=== PATIENT | male | born 1955 | race Caucasian/White ===

== ENCOUNTER 2018-06-29 08:54 | Inpatient (IN) | payer BC, OTHER ==
[2018-06-29 09:12] LABS: #Basophils 0.1 thou/uL (0.0-0.2); #Eosinphils 0.5 thou/uL (0.0-0.7); #Lymphocytes 2.1 thou/uL (1.20-3.40); #Monocytes 0.7 thou/uL (0.11-0.59); #Neutrophils 5.7 thou/uL (1.40-6.50); %Basophils 0.8 % (0.0-1.0); %Eosinophils 5.4 % (0.0-10.0); %Lymphocytes 22.7 % (21.0-51.0); %Monocytes 8.2 % (0.0-10.0); %Neutrophils 62.9 % (42.0-75.0); Mean Corpuscular HGB CONC 32.8 g/dL (32.0-36.0); Mean Corpuscular Volume 94.6 fL (78.0-98.0); Mean Platelet Volume 8.1 fL (7.4-10.4); Platelet Count 163 thou/uL (130-400); RBC Distribution Width 11.9 % (11.5-14.5); Red Blood Cell (RBC) Count 5.46 mill/uL (4.70-6.10)
[2018-06-29 09:32] LABS: ALT (SGPT) 45 U/L (8-55); AST (SGOT) 44 U/L (5-34); Albumin 4.1 g/dL (3.4-4.8); Alkaline Phosphatase 89 U/L (40-150); Anion Gap 15 mmol/L (10-20); BUN (Urea Nitrogen) 13 mg/dL (8.4-25.7); Bilirubin, Total 0.9 mg/dL (0.2-1.2); CK (CPK) 78 U/L (30-200); Calc. Creatinine Clearance 0 mL/min (70-130); Calcium 9.4 mg/dL (7.8-10.44); Carbon Dioxide 20 mmol/L (23-31); Chloride 107 mmol/L (98-107); Estimated GFR-MDRD 70; Globulin 3.6 g/dL (2.4-3.5); Glucose 165 mg/dL (80-115); Potassium 3.8 mmol/L (3.5-5.1); Protein, Total 7.7 g/dL (5.8-8.1); Sodium 138 mmol/L (136-145)
[2018-06-29 09:54] LABS: CKMB 1.7 ng/mL (0-6.6)
[2018-06-29] MEDS ORDERED: ISOVUE-370 76%-LOCM 1 ML ONE (09:54)
--- NOTE | 2018-06-29 10:13 | RAD ---
PORTABLE AP CHEST: Date: 06/29/18 HISTORY: Shortness of breath and weakness. FINDINGS: Cardiac silhouette and pulmonary vasculature are within normal limits. Lungs are clear. Osseous struc tures are intact. Vascular calcifications seen in thoracic aorta. IMPRESSION: No acute cardiopulmonary process. POS: H
--- NOTE | 2018-06-29 11:21 | CT ---
CTA CHEST AND ABDOMEN AND PELVIS WITH CONTRAST WITH 3D VOLUME RENDERING CT AORTOGRAM WITH 3D VOLUME RENDERING WITH CONTRAST: Date: 06/29/18 CLINICAL HISTORY: Pain, shortness of breath. History of ST elevation abnormality on EKG. FINDINGS: There is a large central filling defect occupying the right and left main pulmonary emboli extending into multiple segmental and subsegmental pulmonary arterial branches bilaterally consistent with a la rge, acute pulmonary embolus. There is no aortic dissection. Small hepatic hypodensity is seen within the right lobe, too small to further characterize. Low attenuation hepatic parenchyma could relate t o phase of enhancement versus hepatic steatosis. Correlate with liver function enzymes. There is a la rge exophytic cyst emanating from the posterior aspect of the right kidney. Small volume of partially imaged mesenteric fluid is seen at the low abdomen. Non-inflamed fat-containing umbilical hernia is present. IMPRESSION: 1. Large, acute saddle pulmonary embolus. 2. No acute aortic dissection. Telephone call findings to ER physician, Dr. Anderson, at 1100 hours on 06/29/18. CODE CR. POS: LV
[2018-06-29 11:28] LABS: INR-International Normal Ratio 1.1; Prothrombin Time 14.3 SEC (12.0-14.7)
[2018-06-29 11:29] LABS: PTT 27.5 SEC (22.9-36.1)
[2018-06-29] MEDS ORDERED: Enoxaparin Sodium 100 MG/ML SYRINGE ONE (11:40)
[2018-06-29] MEDS ORDERED: Enoxaparin Sodium 30 MG/0.3 ML SYRINGE ONE (11:40)
[2018-06-29] MEDS ORDERED: Calcium Carbonate 500 MG ChewTAB PO PRN (13:11)
[2018-06-29] MEDS ORDERED: Zolpidem Tartrate 5 MG TAB PO PRN (13:11)
[2018-06-29] MEDS ORDERED: Acetaminophen 325 MG TAB PO PRN (13:11)
[2018-06-29] MEDS ORDERED: hydrALAZINE 20 MG/ML VIAL SLOW IVP PRN (13:11)
[2018-06-29] MEDS ORDERED: HYDROcodone/Acetaminophen 5/325 mg Tablet PO PRN (13:11)
[2018-06-29] MEDS ORDERED: Loratadine 10 MG TAB PO PRN (13:11)
[2018-06-29] MEDS ORDERED: Bisacodyl 5 MG TAB PO PRN (13:11)
[2018-06-29] MEDS ORDERED: Diabetic Tussin 200 MG/10 ML UDCUP PO PRN (13:11)
[2018-06-29] MEDS ORDERED: Senokot S 8.6-50 MG TAB PO PRN (13:11)
[2018-06-29] MEDS ORDERED: Ondansetron ODT 4 MG TAB PO PRN (13:11)
[2018-06-29] MEDS ORDERED: Ondansetron PF 4 MG/2 ML Vial IVP PRN (13:11)
[2018-06-29] MEDS ORDERED: Eucerin (Mineral Oil/Petrolatum,White) 30 gm Jar TOP PRN (13:11)
[2018-06-29] MEDS ORDERED: Loperamide HCl 2 MG CAP PO PRN (13:11)
[2018-06-29] MEDS ORDERED: Artificial Tear Sol 15 ML BOT EA EYE PRN (13:11)
[2018-06-29] MEDS ORDERED: Bisacodyl 10 MG SUPP PR PRN (13:11)
[2018-06-29] MEDS ORDERED: Sodium Chloride 0.65% Nasal 44 ML BOT EA NARE PRN (13:11)
[2018-06-29] MEDS ORDERED: Cepastat Lozenges 1 LOZ PO PRN (13:11)
[2018-06-29] MEDS ORDERED: Nitroglycerin 0.4 MG TAB (25 Tab Bottle) SL PRN (13:11)
--- NOTE | 2018-06-29 13:29 | HP ---
PRIMARY CARE PHYSICIAN: Dr. Kings Barton. REASON FOR ADMISSION: Acute pulmonary embolism. HISTORY OF PRESENT ILLNESS: A 62-year-old male with no significant chronic problem, who presented to emergency room with complaint of increasing shortness of breath. The patient noticed that for last one and half week, he was experiencing dyspnea on exertion when he was riding bike. He was feeling as if he requires deep air. This was pretty much unusual and new thing happened to him and that is why he made appointment with primary care physician, who did a chest x-ray, which was normal and the patient was scheduled for outpatient stress test. Since then, the patient was continued to experience shortness of breath. His symptoms gotten worse for last 2 to 3 days and yesterday and last night, his symptoms gotten worse. He was feeling shortness of breath. He was feeling air hunger and that is why he decided to come to emergency room for evaluation. In the emergency room, the patient had routine blood test, which showed slightly elevated troponin and significantly abnormal D-dimer and that is why CT dissection protocol was done, which showed large acute saddle pulmonary embolism without any dissection. His chest x-ray was unremarkable. The patient also reports that he was feeling chest tightness and cough. He denies any exertion related to chest pain, pleurisy, fever, chills, or recent flu-like illness. The patient also reports that in end of April and early May, they had a trip to [place]. Subsequently, the patient also noticed that for last couple of days , he experienced right leg calf discomfort, which subsided by itself. The patient denies any lower extremity edema. 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 He denies any trauma. He does have age-appropriate cancer screening with colonoscopy about seven years ago, which was normal. He denies any weight loss or any significant family history of blood clot disorder. REVIEW OF SYSTEMS: CONSTITUTIONAL: Negative for weight loss or gain, ability to conduct usual activities. SKIN: Negative for rash, itching. EYES: Negative for double vision, pain. ENT/MOUTH: Negative for nose bleeding, neck stiffness, pain, tenderness. CARDIOVASCULAR: Negative for palpitations, dyspnea on exertion, orthopnea. RESPIRATORY: Negative for shortness of breath, wheezing, cough, hemoptysis, fever or night sweats. GASTROINTESTINAL: Negative for poor appetite, abdominal pain, heartburn, nausea , vomiting, constipation, or diarrhea. GENITOURINARY: Negative for urgency, frequency, dysuria, nocturia. MUSCULOSKELETAL: Negative for pain, swelling. NEUROLOGIC/PSYCHIATRIC: Negative for anxiety, depression. ALLERGY/IMMUNOLOGIC: Negative for skin rash, bleeding tendency. Please see my HPI for pertinent positives and negatives. All other review of systems reviewed and negative except as mentioned in HPI. Notably, he denies any melena or hematochezia. PAST MEDICAL HISTORY: Reviewed and negative. PAST SURGICAL HISTORY: Reviewed and negative. PAST PSYCHIATRIC HISTORY: Reviewed and negative. SOCIAL HISTORY: He drinks beer almost daily, but he is not heavy alcoholic. He denies any smoking. He denies any other illicit drug abuse. 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 FAMILY HISTORY: The patient is . He does not have any family history of coronary artery disease, stroke, or cancer or any blood clot disorder. ALLERGIES: NO KNOWN DRUG ALLERGY. CURRENT HOME MEDICATIONS: The patient is not taking chronically any prescribed or non-prescribed medication. EMERGENCY ROOM COURSE: The patient is given Lovenox 130 mg subcu. PHYSICAL EXAMINATION: VITAL SIGNS: On arrival, blood pressure 139/95, pulse 93, respiratory rate 25, saturation 87% on room air, and temperature 97.6. Weight 105.3 kg. GENERAL: The patient is currently alert and awake, in no obvious acute distress. Appears slightly tachypneic. HEENT: Head is normocephalic and atraumatic. Eyes, pupils are round and reactive to light. Extraocular muscle intact. ENT; oropharynx within normal limits. Moist mucous membranes. No oral lesion. No pharyngeal erythema. No exudate. NECK: Supple. No JVD. No thyromegaly. No carotid bruit. No jugular venous distention. LUNGS: Clear to auscultation without any rhonchi or rales. CARDIAC: S1 and S2, regular without any murmur. No gallop. No rub. ABDOMEN: Soft. Bowel sounds present. Nontender. Nondistended. No organomegaly. No mass. No suprapubic tenderness. Obesity present. BACK: Examination unremarkable. No CVA tenderness. EXTREMITIES: Upper extremities; passive movement of all joints are normal. Lower extremity, no edema. No calf tenderness. Good distal pulsation. SKIN: No skin rash. HEMATOLOGIC: No lymphadenopathy. PSYCHIATRIC: Normal affect. SIGNIFICANT LABORATORY DATA: EKG showing first-degree AV block, right bundle- branch block pattern. another EKG consistent with S1Q3T3, Chest x-ray, unremarkable. CT angiography dissection protocol negative for dissection, but showing large saddle pulmonary embolism. ASSESSMENT/PLAN: 1. Acute respiratory failure with hypoxia secondary to saddle pulmonary embolism. 2. Acute saddle pulmonary embolism associated with hypoxia. The patient has significantly elevated D-dimer. The patient had recent trip to [place] and subsequently suspected from deep vein thrombosis as the patient also reported right lower extremity calf tenderness few days ago and now patient presented with dyspnea on exertion, acute onset, associated with elevated troponin and CT angiography confirmed a saddle pulmonary embolism. He is hemodynamically stable with blood pressure and pulse leon, but oxygen saturation is improved with oxygen supplementation. The patient will require close monitoring in ICU. We will treat him with Lovenox 1 mg/kg subcu twice daily. Pulmonary group will be consulted. We will obtain echocardiography to assess EF and other structural abnormality. We will monitor on telemetry floor. We will also obtain ultrasound of lower extremity to rule out any deep vein thrombosis. I have discussed with them about different options of long-term treatment with warfarin, Eliquis, and Xarelto with the patient and family member. At this point, we will continue with Lovenox and we will consider changing to newer oral anticoagulant therapy upon discharge. The patient will need age-appropriate cancer screening after discharge. 3. Demand ischemia of myocardium. NSTEMI type-2 due to saddle PE. We will do serial cardiac enzyme x3. 4. Deep venous thrombosis prophylaxis. The patient is already on full dose of Lovenox therapy. Gastrointestinal prophylaxis. Pepcid 20 mg p.o. b.i.d. CODE STATUS: The patient is full code. The patient's is surrogate decision maker. DISPOSITION PLAN: Based on clinical course, we are expecting the patient's stay in hospital more than 2 midnights. Plan of care discussed with the patient and his at bedside in the emergency room. Job ID: [id number] [facility]
[2018-06-29 16:20] LABS: Critical Call Chem Troponin I RESULT DECREASING
--- NOTE | 2018-06-29 16:31 | ULT ---
BILATERAL LOWER EXTREMITY VENOUS DOPPLER WITH SPECTRAL ANALYSIS AND COLOR FLOW EVALUATION: 06/29/18 HISTORY: Dyspnea and shortness of breath, extensive bilateral pulmonary emboli. FINDINGS: Echols scale, color flow, doppler evaluation, and spectral analysis of the bilateral lower extremity ve nous structures is performed with 2D imaging. Bilateral lower extremity, femoral, superficial femoral , popliteal, posterior tibial, most proximal visualized greater saphenous and profunda femoral veins are imaged. There is increased luminal echogenicity seen within the right lower extremity posterior tibial vein w ith flow demonstrated suggesting nonocclusive thrombus. However, there is increased luminal echogenic ity as well as decreased lumen compressibility and absence of flow seen involving the right lower ext remity popliteal, and superficial femoral veins, compatible with occlusive thrombus in the right lowe r extremity. There is normal lumen compressibility, flow, and augmentation in the visualized deep venous structure s of the left lower extremity. IMPRESSION: 1. Occlusive DVT right lower extremity popliteal vein and superficial femoral vein. There does a ppear to be normal lumen compressibility and flow in the right common femoral vein. 2. Nonocclusive DVT right posterior tibial vein. 3. No evidence of a DVT involving the visualized deep venous structures of the left lower extrem ity. 4. Dr. Cortes was informed of these findings by Rayna, hospital laboratory technician at time of this e xam. POS: LV
[2018-06-29 16:38] LABS: CKMB 2.6 ng/mL (0-6.6)
[2018-06-29] MEDS: Loratadine 10 MG TAB PO PRN (17:10)
[2018-06-29] MEDS: Enoxaparin Sodium 100 MG/ML SYRINGE SC SCH (20:59)
[2018-06-29] MEDS: Famotidine 20 MG TAB PO SCH (21:00)
--- NOTE | 2018-06-30 00:43 | CON ---
DATE OF CONSULTATION: HISTORY OF PRESENT ILLNESS: Mr. Falcon is a 62-year-old male who is actually normally very active. He actually rides his bike to work. He has noticed a relatively rapid decline over the last 2 weeks of his perception of dyspnea on exertion. He reached a point last night where he became suddenly worse and then this gradually resolved, and then this morning, he became suddenly worse again, but it did not resolve as quickly, so he came to the emergency room. He had an aortic dissection. CT done in the emergency room, which show thromboembolic disease. His blood pressure is normal. His heart rate is normal. He is only on 2 L of oxygen. He denies being short of breath at the time of my interview. He had a venogram done when he arrived up in the Critical Care Unit, which showed that he has residual occlusive clot in his right lower extremity. His right heart was not dilated on echo and he has a normal left ventricular ejection fraction. I have reviewed his CT scan. PAST MEDICAL HISTORY: Remarkable for no surgery in the past. He says he has been healthy. He said he recently flew to [place] within the last 2 months, I believe in May. REVIEW OF SYSTEMS: A 10-point review of systems is, otherwise, negative. He has had no hemoptysis. PHYSICAL EXAMINATION: VITAL SIGNS: Currently, his blood pressure is 137/97, heart rate 78, respiratory rate 21, oximetry is 92. HEENT: Pupils are equal. Sclerae are anicteric. NECK: Supple. LUNGS: Clear. HEART: Regular rhythm. S1 and S2 are normal. ABDOMEN: Soft and nontender. EXTREMITIES: Without clubbing, cyanosis, or edema. LABORATORY DATA: White count 9, hemoglobin 17, platelets 163. Sodium 138, potassium 3.8, chloride 107, bicarb 20, BUN 13, and creatinine 1.07. IMPRESSION: 1. Subacute submassive thromboembolic disease. He is given IV Lovenox 30 mg per my instructions in the emergency department and started on 1 mg/kg subcu. a. I do not feel tPA is indicated. I certainly do not feel any type of percutaneous intervention is indicated. b. I have recommended strict bedrest since he has residual clot in his right lower extremity. c. I do not feel placement of a filter at this time is indicated. 2. Borderline erythrcytosis. I suspect he may have sleep apnea which untreated. I would be happy to follow along with the physicians caring for him. I have explained to him that he probably be in the ICU at least a couple of days given the extensive nature of his thrombotic disease. 70 minute consult with 50% of time on unit coordinating care Job ID: [id number] [facility]
[2018-06-30 05:24] LABS: Hemoglobin 16.6 g/dL (14.0-18.0); Platelet Count 169 thou/uL (130-400)
[2018-06-30 05:29] LABS: INR-International Normal Ratio 1.2; Prothrombin Time 14.9 SEC (12.0-14.7)
[2018-06-30] MEDS: Enoxaparin Sodium 100 MG/ML SYRINGE SC SCH ×2 (10:28→20:46)
[2018-06-30] MEDS: Famotidine 20 MG TAB PO SCH ×2 (10:29→20:46)
[2018-06-30] MEDS: Loratadine 10 MG TAB PO PRN (10:36)
--- NOTE | 2018-06-30 12:08 | PDOC.PN ---
- Subjective Encounter Start Date: 06/30/18 Encounter Start Time: 09:15 Patient seen and examined. No new complaints. No overnight events - Objective Resuscitation Status - Order Detail: 06/29/18 12:56 Resuscitation Status Routine Resuscitation Status: FULL: Full Resuscitation MAR Reviewed: Yes Vital Signs & Weight: Vital Signs (12 hours) Temp 06/30/18 04:00 98.0 F Weight Weight 226 lb 3.108 oz Most Recent Monitor Data Heart Rate from ECG 79 NIBP 133/86 NIBP BP-Mean 101 Respiration from ECG 27 SpO2 94 I&O: 06/29/18 06/30/18 07/01/18 06:59 06:59 06:59 Intake Total 560 Output Total 745 0 Balance -185 0 Result Diagrams: 06/30/18 05:06 06/30/18 05:05 Radiology Reviewed by me: Yes (US leg-positive for DVT, echo-normal) EKG Reviewed by me: Yes (nsr) Phys Exam - Physical Examination Constitutional: NAD HEENT: PERRLA, moist MMs, sclera anicteric Neck: no JVD, supple Respiratory: no wheezing, no rales, no rhonchi Cardiovascular: RRR, no significant murmur, no rub Gastrointestinal: soft, non-tender, no distention, positive bowel sounds Musculoskeletal: no edema, pulses present Neurological: non-focal, normal sensation, moves all 4 limbs Lymphatic: no nodes Psychiatric: normal affect, A&O x 3 Skin: no rash, normal turgor Dx/Plan (1) Acute pulmonary embolism Code(s): I26.99 - OTHER PULMONARY EMBOLISM WITHOUT ACUTE COR PULMONALE Status : Acute Qualifiers: Pulmonary embolism type: saddle (2) Acute respiratory failure with hypoxia Code(s): J96.01 - ACUTE RESPIRATORY FAILURE WITH HYPOXIA Status: Acute (3) Deep vein thrombosis (DVT) of right lower extremity Code(s): I82.401 - ACUTE EMBOLISM AND THOMBOS UNSP DEEP VEINS OF R LOW EXTREM Status: Acute Qualifiers: Affected thrombotic vein of extremity: popliteal Chronicity: acute Qualified Code(s): I82.431 - Acute embolism and thrombosis of right popliteal vein (4) Demand ischemia of myocardium Code(s): I24.8 - OTHER FORMS OF ACUTE ISCHEMIC HEART DISEASE Status: Acute (5) Obesity (BMI 30-39.9) Code(s): E66.9 - OBESITY, UNSPECIFIED Status: Chronic - Plan cont current plan of care * will monitor in ccu * continue lovenox * medication reviewed as below * symptomatic treatment. Review of Systems - Review of Systems ENT: Nose Congestion. negative: Ear Pain, Ear Discharge, Nose Pain, Nose Discharge, Mouth Pain, Mouth Swelling, Throat Pain, Throat Swelling, Other Respiratory: SOB with Excertion. negative: Cough, Dry, Shortness of Breath, Hemoptysis, Pleuritic Pain, Sputum, Wheezing Cardiovascular: negative: chest pain, palpitations, orthopnea, paroxysmal nocturnal dyspnea, edema, light headedness, other Gastrointestinal: negative: Nausea, Vomiting, Abdominal Pain, Diarrhea, Constipation, Melena, Hematochezia, Other Genitourinary: negative: Dysuria, Frequency, Incontinence, Hematuria, Retention , Other Musculoskeletal: negative: Neck Pain, Shoulder Pain, Arm Pain, Back Pain, Hand Pain, Leg Pain, Foot Pain, Other Skin: negative: Rash, Lesions, Reyes, Bruising, Other - Medications/Allergies Allergies/Adverse Reactions: Allergies Allergy/AdvReac Type Severity Reaction Status Date / Time No Known Allergies Allergy Unverified 06/29/18 13:03 Medications: Current Medications Acetaminophen (Tylenol) 650 mg PO Q4H PRN PRN Reason: Headache/Fever/Mild Pain (1-3) Hydrocodone Bitart/Acetaminophen ([place] 5/325) 1 tab PO Q4H PRN PRN Reason: Moderate Pain (4-6) Artificial Tears (Tears Renewed 15ml Bottle) 2 drop EA EYE PRN PRN PRN Reason: Dry Eyes Bisacodyl (Dulcolax) 10 mg PO DAILYPRN PRN PRN Reason: Constipation Bisacodyl (Dulcolax) 10 mg OR DAILYPRN PRN PRN Reason: Constipation Calcium Carbonate (Tums) 1,000 mg PO Q4H PRN PRN Reason: Heartburn or Indigestion Enoxaparin Sodium (Lovenox) 100 mg SC 0900,2100 REPLACED BY [facility] Last Admin: 06/30/18 10:28 Dose: 100 mg Famotidine (Pepcid) 20 mg PO BID REPLACED BY [facility] Last Admin: 06/30/18 10:29 Dose: 20 mg Guaifenesin (Robitussin Sf) 200 mg PO Q4H PRN PRN Reason: Cough Hydralazine HCl (Apresoline) 10 mg SLOW IVP Q4H PRN PRN Reason: SBP > 180 and HR < 70 Loperamide HCl (Imodium) 2 mg PO PRN PRN PRN Reason: Diarrhea/Loose Stools Loratadine (Claritin) 10 mg PO DAILYPRN PRN PRN Reason: .CONGESTION Last Admin: 06/30/18 10:36 Dose: 10 mg Mineral Oil/White Petrolatum (Eucerin Cream) 0 gm TOP BIDPRN PRN PRN Reason: Dry Skin Nitroglycerin (Nitrostat) 0.4 mg SL Q5MIN PRN PRN Reason: Chest Pain Ondansetron HCl (Zofran Odt) 4 mg PO Q6H PRN PRN Reason: Nausea/Vomiting Ondansetron HCl (Zofran) 4 mg IVP Q6H PRN PRN Reason: Nausea/Vomiting Senna/Docusate Sodium (Senokot S) 2 tab PO BID PRN PRN Reason: Constipation Sodium Chloride ([facility] Nasal [place] 0.65%) 0 ml EA NARE QIDPRN PRN PRN Reason: Nasal Congestion Throat Lozenges (Cepastat Lozenges) 1 darwin PO Q2H PRN PRN Reason: Sore Throat Zolpidem Tartrate (Ambien) 5 mg PO HSPRN PRN PRN Reason: Insomnia
--- NOTE | 2018-06-30 20:08 | PRG ---
DATE OF SERVICE: 06/30/2018 SUBJECTIVE: Hemant Falcon has no complaints. He says he like to get out of bed, but I believe I have convinced him to stay in bed for another couple of days. I explained at length why we do this, even though there are articles and literatures that say it is safe to ambulate. At this point in time, with an extensive thrombotic disease in his leg, I would prefer him to stay in bed to wear at least 3 or 4 days out from his presentation, although I suspect he has had the occlusive problem in his leg and his lungs for several weeks. OBJECTIVE: LUNGS: Clear. HEART: Regular rhythm. ABDOMEN: Soft. VITAL SIGNS: His heart rate is in the 70s, blood pressure 146/93, respiratory rates in the low 20s, and oximetry is 95. LABORATORY DATA: Hemoglobin 16.6 and platelets 169. IMPRESSION: Subacute submassive thromboembolic disease after a flight to [place] in May. He is up to date on his cancer screening tests. PLAN: Continue with full-dose anticoagulation. Supportive care in the critical care unit for now. TIME SPENT: Critical care time 30 minutes. Job ID: [id number] [facility]TD[facility]
[2018-07-01 05:06] LABS: INR-International Normal Ratio 1.1; Prothrombin Time 14.4 SEC (12.0-14.7)
[2018-07-01] MEDS: Famotidine 20 MG TAB PO SCH ×2 (08:21→20:31)
[2018-07-01] MEDS: Loratadine 10 MG TAB PO PRN (08:21)
[2018-07-01] MEDS: Enoxaparin Sodium 100 MG/ML SYRINGE SC SCH ×2 (08:21→20:32)
--- NOTE | 2018-07-01 11:42 | PRG ---
DATE OF SERVICE: 07/01/2018 SUBJECTIVE: Hemant Falcon has no complaints. He is tired of being in bed, but he is tolerating it well. He wants to get up to a bedside commode. He will just need to stand on his left leg bouncing a little bit with his right, I still do not want him do a lot ambulating given the extensive thrombus he had in his right lower extremity. OBJECTIVE: VITAL SIGNS: Heart rate is in 70s, blood pressure is 117/81, respiratory rate is 23. LUNGS: Clear. HEART: Regular rhythm. ABDOMEN: Soft. Subjectively, he says he feels much better. LABORATORY DATA: Hemoglobin was 16.6 yesterday. There was no lab today. IMPRESSION: Subacute thromboembolic disease with extensive clot in his right lower extremity, clinically stable with anticoagulation. We will continue with Lovenox for now. Probably increase his out of bedtime tomorrow. Job ID: [id number]
--- NOTE | 2018-07-01 12:14 | PDOC.PN ---
- Subjective Encounter Start Date: 07/01/18 Encounter Start Time: 09:00 Patient seen and examined. No new complaints. No overnight events - Objective Resuscitation Status - Order Detail: 06/29/18 12:56 Resuscitation Status Routine Resuscitation Status: FULL: Full Resuscitation MAR Reviewed: Yes Vital Signs & Weight: Vital Signs (12 hours) Temp Pulse Ox 07/01/18 08:00 97.6 F 94 L 07/01/18 04:00 97.6 F Weight Weight 226 lb 3.108 oz Most Recent Monitor Data Heart Rate from ECG 73 NIBP 134/102 NIBP BP-Mean 112 Respiration from ECG 23 SpO2 94 I&O: 06/30/18 07/01/18 07/02/18 06:59 06:59 06:59 Intake Total 560 1245 180 Output Total 745 1150 525 Balance -185 95 -345 Result Diagrams: 06/30/18 05:06 06/30/18 05:05 EKG Reviewed by me: Yes Phys Exam - Physical Examination Constitutional: NAD HEENT: PERRLA, moist MMs, sclera anicteric Neck: no JVD, supple Respiratory: no wheezing, no rales, no rhonchi Cardiovascular: RRR, no significant murmur, no rub Gastrointestinal: soft, non-tender, no distention, positive bowel sounds Musculoskeletal: no edema, pulses present Neurological: non-focal, normal sensation, moves all 4 limbs Lymphatic: no nodes Psychiatric: normal affect, A&O x 3 Skin: no rash, normal turgor Dx/Plan (1) Acute pulmonary embolism Code(s): I26.99 - OTHER PULMONARY EMBOLISM WITHOUT ACUTE COR PULMONALE Status : Acute Qualifiers: Pulmonary embolism type: saddle (2) Acute respiratory failure with hypoxia Code(s): J96.01 - ACUTE RESPIRATORY FAILURE WITH HYPOXIA Status: Acute (3) Deep vein thrombosis (DVT) of right lower extremity Code(s): I82.401 - ACUTE EMBOLISM AND THOMBOS UNSP DEEP VEINS OF R LOW EXTREM Status: Acute Qualifiers: Affected thrombotic vein of extremity: popliteal Chronicity: acute Qualified Code(s): I82.431 - Acute embolism and thrombosis of right popliteal vein (4) Demand ischemia of myocardium Code(s): I24.8 - OTHER FORMS OF ACUTE ISCHEMIC HEART DISEASE Status: Acute (5) Obesity (BMI 30-39.9) Code(s): E66.9 - OBESITY, UNSPECIFIED Status: Chronic - Plan cont current plan of care, plan discussed w/ family * continue lovenox * mobilization tomorrow * 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 Review of Systems - Review of Systems ENT: negative: Ear Pain, Ear Discharge, Nose Pain, Nose Discharge, Nose Congestion, Mouth Pain, Mouth Swelling, Throat Pain, Throat Swelling, Other Respiratory: negative: Cough, Dry, Shortness of Breath, Hemoptysis, SOB with Excertion, Pleuritic Pain, Sputum, Wheezing Cardiovascular: negative: chest pain, palpitations, orthopnea, paroxysmal nocturnal dyspnea, edema, light headedness, other Gastrointestinal: negative: Nausea, Vomiting, Abdominal Pain, Diarrhea, Constipation, Melena, Hematochezia, Other Genitourinary: negative: Dysuria, Frequency, Incontinence, Hematuria, Retention , Other Musculoskeletal: negative: Neck Pain, Shoulder Pain, Arm Pain, Back Pain, Hand Pain, Leg Pain, Foot Pain, Other Skin: negative: Rash, Lesions, Reyes, Bruising, Other - Medications/Allergies Allergies/Adverse Reactions: Allergies Allergy/AdvReac Type Severity Reaction Status Date / Time No Known Allergies Allergy Unverified 06/29/18 13:03 Medications: Current Medications Acetaminophen (Tylenol) 650 mg PO Q4H PRN PRN Reason: Headache/Fever/Mild Pain (1-3) Hydrocodone Bitart/Acetaminophen ([place] 5/325) 1 tab PO Q4H PRN PRN Reason: Moderate Pain (4-6) Artificial Tears (Tears Renewed 15ml Bottle) 2 drop EA EYE PRN PRN PRN Reason: Dry Eyes Bisacodyl (Dulcolax) 10 mg PO DAILYPRN PRN PRN Reason: Constipation Bisacodyl (Dulcolax) 10 mg [place] DAILYPRN PRN PRN Reason: Constipation Calcium Carbonate (Tums) 1,000 mg PO Q4H PRN PRN Reason: Heartburn or Indigestion Enoxaparin Sodium (Lovenox) 100 mg SC 0900,2100 [facility] Last Admin: 07/01/18 08:21 Dose: 100 mg Famotidine (Pepcid) 20 mg PO BID [facility] Last Admin: 07/01/18 08:21 Dose: 20 mg Guaifenesin (Robitussin Sf) 200 mg PO Q4H PRN PRN Reason: Cough Hydralazine HCl (Apresoline) 10 mg SLOW IVP Q4H PRN PRN Reason: SBP > 180 and HR < 70 Loperamide HCl (Imodium) 2 mg PO PRN PRN PRN Reason: Diarrhea/Loose Stools Loratadine (Claritin) 10 mg PO DAILYPRN PRN PRN Reason: .CONGESTION Last Admin: 07/01/18 08:21 Dose: 10 mg Mineral Oil/White Petrolatum (Eucerin Cream) 0 gm TOP BIDPRN PRN PRN Reason: Dry Skin Nitroglycerin (Nitrostat) 0.4 mg SL Q5MIN PRN PRN Reason: Chest Pain Ondansetron HCl (Zofran Odt) 4 mg PO Q6H PRN PRN Reason: Nausea/Vomiting Ondansetron HCl (Zofran) 4 mg IVP Q6H PRN PRN Reason: Nausea/Vomiting Senna/Docusate Sodium (Senokot S) 2 tab PO BID PRN PRN Reason: Constipation Sodium Chloride ([place] Nasal [place] 0.65%) 0 ml EA NARE QIDPRN PRN PRN Reason: Nasal Congestion Throat Lozenges (Cepastat Lozenges) 1 darwin PO Q2H PRN PRN Reason: Sore Throat Zolpidem Tartrate (Ambien) 5 mg PO HSPRN PRN PRN Reason: Insomnia
[2018-07-02 06:51] LABS: Platelet Count 178 thou/uL (130-400)
[2018-07-02 06:57] LABS: INR-International Normal Ratio 1.1
[2018-07-02] MEDS: Famotidine 20 MG TAB PO SCH ×2 (08:40→20:56)
[2018-07-02] MEDS: Loratadine 10 MG TAB PO PRN (08:40)
[2018-07-02] MEDS: Enoxaparin Sodium 100 MG/ML SYRINGE SC SCH ×2 (08:40→20:56)
--- NOTE | 2018-07-02 11:48 | PDOC.PN ---
- Subjective Encounter Start Date: 07/02/18 Encounter Start Time: 09:30 Patient seen and examined. No new complaints. No overnight events - Objective Resuscitation Status - Order Detail: 06/29/18 12:56 Resuscitation Status Routine Resuscitation Status: FULL: Full Resuscitation MAR Reviewed: Yes Vital Signs & Weight: Vital Signs (12 hours) Temp Pulse Ox 07/02/18 08:00 97.6 F 91 L 07/02/18 04:00 98.7 F Weight Weight 226 lb 1.6 oz Most Recent Monitor Data Heart Rate from ECG 72 NIBP 128/89 NIBP BP-Mean 102 Respiration from ECG 25 SpO2 93 I&O: 07/01/18 07/02/18 07/03/18 06:59 06:59 06:59 Intake Total 1245 1560 420 Output Total 1150 1435 300 Balance 95 125 120 Result Diagrams: 07/02/18 06:43 07/02/18 06:43 EKG Reviewed by me: Yes Phys Exam - Physical Examination Constitutional: NAD HEENT: PERRLA, moist MMs, sclera anicteric Neck: no JVD, supple Respiratory: no wheezing, no rales, no rhonchi Cardiovascular: RRR, no significant murmur, no rub Gastrointestinal: soft, non-tender, no distention, positive bowel sounds Musculoskeletal: no edema, pulses present Neurological: non-focal, normal sensation, moves all 4 limbs Lymphatic: no nodes Psychiatric: normal affect, A&O x 3 Skin: no rash, normal turgor Dx/Plan (1) Acute pulmonary embolism Code(s): I26.99 - OTHER PULMONARY EMBOLISM WITHOUT ACUTE COR PULMONALE Status : Acute Qualifiers: Pulmonary embolism type: saddle (2) Acute respiratory failure with hypoxia Code(s): J96.01 - ACUTE RESPIRATORY FAILURE WITH HYPOXIA Status: Acute (3) Deep vein thrombosis (DVT) of right lower extremity Code(s): I82.401 - ACUTE EMBOLISM AND THOMBOS UNSP DEEP VEINS OF R LOW EXTREM Status: Acute Qualifiers: Affected thrombotic vein of extremity: popliteal Chronicity: acute Qualified Code(s): I82.431 - Acute embolism and thrombosis of right popliteal vein (4) Demand ischemia of myocardium Code(s): I24.8 - OTHER FORMS OF ACUTE ISCHEMIC HEART DISEASE Status: Acute (5) Obesity (BMI 30-39.9) Code(s): E66.9 - OBESITY, UNSPECIFIED Status: Chronic - Plan cont current plan of care * continue lovenox * pt has decided to go home with elliquis or xarelto * medication reviewed as below * symptomatic treatment * transfer to floor will defer to pulmonary. Review of Systems - Review of Systems ENT: negative: Ear Pain, Ear Discharge, Nose Pain, Nose Discharge, Nose Congestion, Mouth Pain, Mouth Swelling, Throat Pain, Throat Swelling, Other Respiratory: negative: Cough, Dry, Shortness of Breath, Hemoptysis, SOB with Excertion, Pleuritic Pain, Sputum, Wheezing Cardiovascular: negative: chest pain, palpitations, orthopnea, paroxysmal nocturnal dyspnea, edema, light headedness, other Gastrointestinal: negative: Nausea, Vomiting, Abdominal Pain, Diarrhea, Constipation, Melena, Hematochezia, Other Genitourinary: negative: Dysuria, Frequency, Incontinence, Hematuria, Retention , Other Musculoskeletal: negative: Neck Pain, Shoulder Pain, Arm Pain, Back Pain, Hand Pain, Leg Pain, Foot Pain, Other - Medications/Allergies Allergies/Adverse Reactions: Allergies Allergy/AdvReac Type Severity Reaction Status Date / Time No Known Allergies Allergy Unverified 06/29/18 13:03 Medications: Current Medications Acetaminophen (Tylenol) 650 mg PO Q4H PRN PRN Reason: Headache/Fever/Mild Pain (1-3) Hydrocodone Bitart/Acetaminophen ([place] 5/325) 1 tab PO Q4H PRN PRN Reason: Moderate Pain (4-6) Artificial Tears (Tears Renewed 15ml Bottle) 2 drop EA EYE PRN PRN PRN Reason: Dry Eyes Bisacodyl (Dulcolax) 10 mg PO DAILYPRN PRN PRN Reason: Constipation Bisacodyl (Dulcolax) 10 mg [place] DAILYPRN PRN PRN Reason: Constipation Calcium Carbonate (Tums) 1,000 mg PO Q4H PRN PRN Reason: Heartburn or Indigestion Enoxaparin Sodium (Lovenox) 100 mg SC 0900,2100 [facility] Last Admin: 07/02/18 08:40 Dose: 100 mg Famotidine (Pepcid) 20 mg PO BID [facility] Last Admin: 07/02/18 08:40 Dose: 20 mg Guaifenesin (Robitussin Sf) 200 mg PO Q4H PRN PRN Reason: Cough Hydralazine HCl (Apresoline) 10 mg SLOW IVP Q4H PRN PRN Reason: SBP > 180 and HR < 70 Loperamide HCl (Imodium) 2 mg PO PRN PRN PRN Reason: Diarrhea/Loose Stools Loratadine (Claritin) 10 mg PO DAILYPRN PRN PRN Reason: .CONGESTION Last Admin: 07/02/18 08:40 Dose: 10 mg Mineral Oil/White Petrolatum (Eucerin Cream) 0 gm TOP BIDPRN PRN PRN Reason: Dry Skin Nitroglycerin (Nitrostat) 0.4 mg SL Q5MIN PRN PRN Reason: Chest Pain Ondansetron HCl (Zofran Odt) 4 mg PO Q6H PRN PRN Reason: Nausea/Vomiting Ondansetron HCl (Zofran) 4 mg IVP Q6H PRN PRN Reason: Nausea/Vomiting Senna/Docusate Sodium (Senokot S) 2 tab PO BID PRN PRN Reason: Constipation Sodium Chloride ([place] Nasal [place] 0.65%) 0 ml EA NARE QIDPRN PRN PRN Reason: Nasal Congestion Throat Lozenges (Cepastat Lozenges) 1 darwin PO Q2H PRN PRN Reason: Sore Throat Zolpidem Tartrate (Ambien) 5 mg PO HSPRN PRN PRN Reason: Insomnia
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
--- NOTE | 2018-07-02 19:19 | PRG ---
DATE OF SERVICE: 07/02/2018 SUBJECTIVE: Terrie is doing well. We have liberalized his activity today where he can walk around the room, go to the bathroom if he needs to. OBJECTIVE: VITAL SIGNS: He is afebrile. Heart rate is 70s, blood pressure 148/97, respiratory rate 18 to 20. LUNGS: Clear. HEART: Regular rhythm. S1 and S2 normal. ABDOMEN: Soft. EXTREMITIES: Still without any asymmetry or edema. His platelets are 178 today. Electrolytes have not been repeated. IMPRESSION: Thromboembolic disease and subacute submassive clinically stable. Tomorrow, we will move him out of the Critical Care Unit. Allow him to start ambulating more and then hopefully we can discharge him the day after that for close outpatient followup with oral anticoagulation. We will continue Lovenox for now. Job ID: [id number]
[2018-07-03 06:04] LABS: INR-International Normal Ratio 1.1; Prothrombin Time 14.2 SEC (12.0-14.7)
[2018-07-03 07:31] VITALS: BMI 28.5
[2018-07-03] MEDS: Famotidine 20 MG TAB PO SCH ×2 (09:17→20:44)
[2018-07-03] MEDS: Apixaban 5 MG TAB PO SCH ×2 (09:21→20:44)
--- NOTE | 2018-07-03 11:22 | PDOC.PN ---
- Subjective Encounter Start Date: 07/03/18 Encounter Start Time: 07:20 Patient seen and examined. No new complaints. No overnight events - Objective Resuscitation Status - Order Detail: 06/29/18 12:56 Resuscitation Status Routine Resuscitation Status: FULL: Full Resuscitation MAR Reviewed: Yes Vital Signs & Weight: Vital Signs (12 hours) Temp Pulse Ox 07/03/18 07:33 94 L 07/03/18 07:00 98.3 F 07/03/18 05:00 98.8 F Weight Weight 188 lb 4.396 oz Most Recent Monitor Data Heart Rate from ECG 76 NIBP 133/82 NIBP BP-Mean 99 Respiration from ECG 25 SpO2 96 I&O: 07/02/18 07/03/18 07/04/18 06:59 06:59 06:59 Intake Total 1560 1020 360 Output Total 1435 1200 250 Balance 125 -180 110 Result Diagrams: 07/02/18 06:43 07/02/18 06:43 EKG Reviewed by me: Yes (nsr) Phys Exam - Physical Examination Constitutional: NAD HEENT: PERRLA, moist MMs, sclera anicteric Neck: no JVD, supple Respiratory: no wheezing, no rales, no rhonchi Cardiovascular: RRR, no significant murmur, no rub Gastrointestinal: soft, non-tender, no distention, positive bowel sounds Musculoskeletal: no edema, pulses present Neurological: non-focal, normal sensation, moves all 4 limbs Lymphatic: no nodes Psychiatric: normal affect, A&O x 3 Skin: no rash, normal turgor Dx/Plan (1) Acute pulmonary embolism Code(s): I26.99 - OTHER PULMONARY EMBOLISM WITHOUT ACUTE COR PULMONALE Status : Acute Qualifiers: Pulmonary embolism type: saddle (2) Acute respiratory failure with hypoxia Code(s): J96.01 - ACUTE RESPIRATORY FAILURE WITH HYPOXIA Status: Acute (3) Deep vein thrombosis (DVT) of right lower extremity Code(s): I82.401 - ACUTE EMBOLISM AND THOMBOS UNSP DEEP VEINS OF R LOW EXTREM Status: Acute Qualifiers: Affected thrombotic vein of extremity: popliteal Chronicity: acute Qualified Code(s): I82.431 - Acute embolism and thrombosis of right popliteal vein (4) Demand ischemia of myocardium Code(s): I24.8 - OTHER FORMS OF ACUTE ISCHEMIC HEART DISEASE Status: Acute (5) Obesity (BMI 30-39.9) Code(s): E66.9 - OBESITY, UNSPECIFIED Status: Chronic - Plan cont current plan of care * today transfer to [facility] * change lovenox to [facility] * ambulate with PT * expecting discharge tomorrow * medication reviewed as below * symptomatic treatment. Review of Systems - Review of Systems ENT: negative: Ear Pain, Ear Discharge, Nose Pain, Nose Discharge, Nose Congestion, Mouth Pain, Mouth Swelling, Throat Pain, Throat Swelling, Other Respiratory: negative: Cough, Dry, Shortness of Breath, Hemoptysis, SOB with Excertion, Pleuritic Pain, Sputum, Wheezing Cardiovascular: negative: chest pain, palpitations, orthopnea, paroxysmal nocturnal dyspnea, edema, light headedness, other Gastrointestinal: negative: Nausea, Vomiting, Abdominal Pain, Diarrhea, Constipation, Melena, Hematochezia, Other Genitourinary: negative: Dysuria, Frequency, Incontinence, Hematuria, Retention , Other Musculoskeletal: negative: Neck Pain, Shoulder Pain, Arm Pain, Back Pain, Hand Pain, Leg Pain, Foot Pain, Other Skin: negative: Rash, Lesions, Reyes, Bruising, Other - Medications/Allergies Allergies/Adverse Reactions: Allergies Allergy/AdvReac Type Severity Reaction Status Date / Time No Known Allergies Allergy Unverified 06/29/18 13:03 Medications: Current Medications Acetaminophen (Tylenol) 650 mg PO Q4H PRN PRN Reason: Headache/Fever/Mild Pain (1-3) Hydrocodone Bitart/Acetaminophen ([place] 5/325) 1 tab PO Q4H PRN PRN Reason: Moderate Pain (4-6) Apixaban (Eliquis) 10 mg PO BID [facility] Last Admin: 07/03/18 09:21 Dose: 10 mg Artificial Tears (Tears Renewed 15ml Bottle) 2 drop EA EYE PRN PRN PRN Reason: Dry Eyes Bisacodyl (Dulcolax) 10 mg PO DAILYPRN PRN PRN Reason: Constipation Bisacodyl (Dulcolax) 10 mg [place] DAILYPRN PRN PRN Reason: Constipation Calcium Carbonate (Tums) 1,000 mg PO Q4H PRN PRN Reason: Heartburn or Indigestion Famotidine (Pepcid) 20 mg PO BID [facility] Last Admin: 07/03/18 09:17 Dose: 20 mg Guaifenesin (Robitussin Sf) 200 mg PO Q4H PRN PRN Reason: Cough Hydralazine HCl (Apresoline) 10 mg SLOW IVP Q4H PRN PRN Reason: SBP > 180 and HR < 70 Loperamide HCl (Imodium) 2 mg PO PRN PRN PRN Reason: Diarrhea/Loose Stools Loratadine (Claritin) 10 mg PO DAILYPRN PRN PRN Reason: .CONGESTION Last Admin: 07/02/18 08:40 Dose: 10 mg Mineral Oil/White Petrolatum (Eucerin Cream) 0 gm TOP BIDPRN PRN PRN Reason: Dry Skin Nitroglycerin (Nitrostat) 0.4 mg SL Q5MIN PRN PRN Reason: Chest Pain Ondansetron HCl (Zofran Odt) 4 mg PO Q6H PRN PRN Reason: Nausea/Vomiting Ondansetron HCl (Zofran) 4 mg IVP Q6H PRN PRN Reason: Nausea/Vomiting Senna/Docusate Sodium (Senokot S) 2 tab PO BID PRN PRN Reason: Constipation Sodium Chloride ([facility] [place] Nasal [place] 0.65%) 0 ml EA NARE QIDPRN PRN PRN Reason: Nasal Congestion Throat Lozenges (Cepastat Lozenges) 1 darwin PO Q2H PRN PRN Reason: Sore Throat Zolpidem Tartrate (Ambien) 5 mg PO HSPRN PRN PRN Reason: Insomnia
--- NOTE | 2018-07-03 21:21 | PRG ---
DATE OF SERVICE: 07/03/2018 SUBJECTIVE: Hemant Falcon did well overnight. He has had no distress, no leg pain, no shortness of breath. OBJECTIVE: VITAL SIGNS: His heart rate is in the 70s, oximetry 94% on room air, blood pressure 141/88. LUNGS: Unchanged. HEART: Unchanged. ABDOMEN: Unchanged. He has been switched to p.o. anticoagulants. He will be transferred to the intermediate care unit. We will begin ambulation. Should not need physical therapy for ambulation. If he ambulates well today and tomorrow morning then we might consider discharge home in the morning. Job ID: [id number]
[2018-07-04 06:30] LABS: Hemoglobin 16.5 g/dL (14.0-18.0)
[2018-07-04 06:33] LABS: Platelet Count 198 thou/uL (130-400)
[2018-07-04 06:34] LABS: INR-International Normal Ratio 1.3; Prothrombin Time 15.9 SEC (12.0-14.7)
[2018-07-04 07:14] VITALS: TEMP 98.1
[2018-07-04] MEDS: Apixaban 5 MG TAB PO SCH (08:54)
[2018-07-04] MEDS: Famotidine 20 MG TAB PO SCH (08:54)
[2018-07-04 11:28] VITALS: BP 131/91
--- NOTE | 2018-07-04 12:29 | DIS ---
DATE OF ADMISSION: 06/29/2018 DATE OF DISCHARGE: 07/04/2018 PRIMARY CARE PHYSICIAN: Dr. Kings Barton. DISCHARGE DISPOSITION: Home. PRIMARY DISCHARGE DIAGNOSES: 1. Deep venous thrombosis of right lower extremity, acute pulmonary embolism saddle, demand ischemia of myocardium, type 2 myocardial infarction. 2. Acute respiratory failure with hypoxia, resolved. SECONDARY DISCHARGE DIAGNOSIS: Obesity. PRIMARY PROCEDURE/OPERATION: None. RADIOLOGICAL INVESTIGATION: Chest x-ray normal. CT angiography with dissection protocol showed saddle pulmonary embolism. Echocardiography showed normal EF. Ultrasound was positive for DVT on the right lower extremity. SIGNIFICANT LABORATORY DATA: WBC 9.0, hemoglobin 16.5, platelet 198. INR 1.3. Creatinine 0.87. Troponin 0.30. BNP 363.4. DISCHARGE MEDICATION: Eliquis 10 mg p.o. b.i.d. for 3 more days and then 5 mg p.o. b.i.d. CONTRAINDICATION: None. CODE STATUS: Full code. INPATIENT STONE DERRICKMAN AND RIGGER: Dr. Cortes was following while in hospital. TEST RESULT PENDING ON DISCHARGE: None. ALLERGIES: NO KNOWN DRUG ALLERGIES. DISCHARGE PLAN: Posthospital, the patient will follow up with Dr. Cortes and primary care physician. HOSPITAL COURSE: A 62-year-old male, who had history of flight to [place] in early May. The patient was also having leg pain before coming to the hospital and he came to hospital with acute onset of shortness of breath. He was hypoxic on admission. CT dissection protocol showed saddle pulmonary embolism. He was hemodynamically stable, but he was admitted to ICU for close monitoring. We treated him with Lovenox while in hospital and the patient decided to go home with long-term anticoagulation with oral Eliquis. After 3 days of Lovenox therapy, we changed to Eliquis therapy and after Eliquis therapy, we watched him for ambulation while in hospital. The patient's oxygen requirement completely improved and resolved. He is on room air. He is ambulatory, tolerating p.o. well and he does not have any symptoms. He is feeling much better. The patient is seen and examined at bedside today. Plan of care discussed with the patient and his . His vitals are stable. His examination is completely normal. He will follow up with primary care physician and Dr. Cortes as instructed. All new medication prescription sent to his pharmacy. Job ID: [id number]
== END 2018-07-04 13:30 | disposition home or self-care (01) | DRG 175 ==
LOC: ERS 08:54 → CCU 12:54 → SURG A 07-01 11:20 → CCU 07-01 11:24 → IMCU/EMU 07-03 10:31
PROVIDERS: ADMIT Internal Medicine; ATTEND Internal Medicine
DX: I26.92 Saddle embolus of pulmonary artery without acute cor pulmonale (principal); J96.01 Acute respiratory failure with hypoxia; I21.A1 Myocardial infarction type 2; I82.431 Acute embolism and thrombosis of right popliteal vein; E66.9 Obesity, unspecified; Z68.34 Body mass index [BMI] 34.0-34.9, adult
CPT/HCPCS: 36415; 71045; 71275; 80053; 82274; 82550; 82553; 82565; 83880; 84484; 85014; 85018; 85025; 85049; 85379; 85610; 85730; 93005; 93306; 93970; 96372; 96374; J1650; Q9966

== ENCOUNTER 2022-09-18 14:03 | Inpatient (IN) | payer OTHER, BC ==
[~2022-09-18 14:03] MED LIST: Iopamidol 370 76% 100 ML VIAL ONE
[2022-09-18 14:42] LABS: #Basophils 0.1 thou/uL (0.0-0.2); #Eosinphils 0.3 thou/uL (0.0-0.7); #Monocytes 0.6 thou/uL (0.11-0.59); #Neutrophils 3.6 thou/uL (1.40-6.50); %Basophils 0.8 % (0.0-1.0); %Lymphocytes 30.1 % (21.0-51.0); %Monocytes 9.6 % (0.0-10.0); Hemoglobin 16.5 g/dL (14.0-18.0); Mean Corpuscular HGB CONC 33.5 g/dL (32.0-36.0); Mean Corpuscular Hemoglobin 30.2 pg (27.0-31.0); Mean Corpuscular Volume 90.3 fl (78.0-98.0); Mean Platelet Volume 10.1 fL (7.4-10.4); Platelet Count 176 10x3/uL (130-400); RBC Distribution Width 13.5 % (11.5-14.5); Red Blood Cell (RBC) Count 5.46 mill/uL (4.70-6.10); White Blood Cell (WBC) Count 6.5 10x3/uL (4.8-10.8)
[2022-09-18 15:10] LABS: ALT (SGPT) 17 U/L (8-55); AST (SGOT) 18 U/L (5-34); Albumin 4.2 g/dL (3.4-4.8); Alkaline Phosphatase 82 U/L (40-110); Anion Gap 15 mmol/L (10-20); BUN (Urea Nitrogen) 13 mg/dL (8.4-25.7); Bilirubin, Total 0.6 mg/dL (0.2-1.2); CK (CPK) 77 U/L (30-200); Calc. Creatinine Clearance 0 mL/min (70-130); Calcium 9.2 mg/dL (7.8-10.44); Carbon Dioxide 20 mmol/L (23-31); Chloride 108 mmol/L (98-107); Estimated GFR 93; Globulin 3.3 g/dL (2.4-3.5); Glucose 118 mg/dL (80-115); Lipase 80 U/L (8-78); Potassium 3.7 mmol/L (3.5-5.1); Protein, Total 7.5 g/dL (5.8-8.1); Sodium 139 mmol/L (136-145)
[2022-09-18] MEDS ORDERED: Tranexamic Acid 1,000 MG in Sodium Chloride 0.9% 250 ML 250 ML IVPB SCH (15:15)
[2022-09-18] MEDS ORDERED: Tranexamic Acid 1,000 MG, Admixture Fee 1 EACH in Sodium Chloride 0.9% 250 ML 250 ML IVPB SCH (15:15)
[2022-09-18] MEDS ORDERED: ADMIXTURE FEE IVPB SCH (15:15)
[2022-09-18] MEDS ORDERED: SODIUM CHLORIDE IVPB SCH (15:15)
[2022-09-18] MEDS ORDERED: TRANEXAMIC ACID IVPB SCH (15:15)
[2022-09-18 15:48] LABS: Prothrombin Time 14.1 sec (12.0-14.7)
[2022-09-18 15:49] LABS: PTT 22.9 sec (22.9-36.1)
[2022-09-18 16:00] LABS: Bacteria/HPF None Seen HPF (None Seen); Bilirubin Negative (Negative); Blood, Urine Trace (Negative); Clarity Clear (Clear); Glucose, Urine (Dipstick) Normal (Negative); Ketone, Urine Negative (Negative); Leukocyte Negative Leu/uL (Negative); Nitrite Negative (Negative); Protein, Urine (Dipstick) 20 mg/dL (Neg-Trace); RBC/HPF 0-3 HPF (0-3); Specific Gravity, Urine 1.041 (1.002-1.036); Squamous Epithelial None Seen HPF (0-3); Urobilinogen Normal mg/dL (Less than 2); WBC/HPF 0-3 HPF (0-3)
[2022-09-18] MEDS ORDERED: Morphine 2 MG/ML VIAL SLOW IVP PRN (16:05)
[2022-09-18] MEDS ORDERED: Ondansetron PF 4 MG/2 ML Vial IVP PRN (16:05)
[2022-09-18] MEDS ORDERED: Dextrose 5% in Water 1,000 ML IV PRN (16:05)
[2022-09-18] MEDS ORDERED: Dextrose 50% Abboject 50 ML SYRINGE SLOW IVP PRN (16:05)
[2022-09-18] MEDS ORDERED: Ondansetron ODT 4 MG TAB PO PRN (16:05)
[2022-09-18] MEDS ORDERED: Ipratropium/Albuterol 3 ML NEB NEB PRN (16:05)
[2022-09-18] MEDS ORDERED: Acetaminophen 325 MG TAB PO PRN (16:10)
[2022-09-18] MEDS ORDERED: Sodium Chloride 0.9% 1,000 ML IV SCH (16:15)
[2022-09-18 16:50] LABS: Hemoglobin 15.8 g/dL (14.0-18.0)
[2022-09-18 17:42] VITALS: BMI 34.5
[2022-09-18] MEDS: Famotidine/PF 20 mg/2ml Vial SLOW IVP SCH (20:57)
[2022-09-18] MEDS ORDERED: hydrALAZINE 20 MG/ML VIAL SLOW IVP PRN (21:08)
[2022-09-18] MEDS ORDERED: Valsartan 80 MG TAB PO SCH (21:30)
[2022-09-18 22:45] LABS: Hemoglobin 15.4 g/dL (14.0-18.0)
[2022-09-19 03:27] LABS: #Basophils 0.1 thou/uL (0.0-0.2); #Eosinphils 0.2 thou/uL (0.0-0.7); #Monocytes 0.7 thou/uL (0.11-0.59); #Neutrophils 4.4 thou/uL (1.40-6.50); %Basophils 0.7 % (0.0-1.0); %Eosinophils 2.4 % (0.0-10.0); %Monocytes 10.3 % (0.0-10.0); %Neutrophils 61.3 % (42.0-75.0); Hemoglobin 15.4 g/dL (14.0-18.0); Mean Corpuscular HGB CONC 33.3 g/dL (32.0-36.0); Mean Corpuscular Volume 89.9 fl (78.0-98.0); Platelet Count 149 10x3/uL (130-400); RBC Distribution Width 13.5 % (11.5-14.5); Red Blood Cell (RBC) Count 5.14 mill/uL (4.70-6.10); White Blood Cell (WBC) Count 7.1 10x3/uL (4.8-10.8)
[2022-09-19 04:02] LABS: ALT (SGPT) 14 U/L (8-55); AST (SGOT) 15 U/L (5-34); Albumin 3.7 g/dL (3.4-4.8); Alkaline Phosphatase 72 U/L (40-110); Anion Gap 11 mmol/L (10-20); BUN (Urea Nitrogen) 10 mg/dL (8.4-25.7); Bilirubin, Total 0.8 mg/dL (0.2-1.2); Calc. Creatinine Clearance 121 mL/min (70-130); Calcium 8.7 mg/dL (7.8-10.44); Carbon Dioxide 22 mmol/L (23-31); Chloride 108 mmol/L (98-107); Estimated GFR 95; Globulin 2.9 g/dL (2.4-3.5); Glucose 117 mg/dL (80-115); Lipase 15 U/L (8-78); Potassium 3.8 mmol/L (3.5-5.1); Protein, Total 6.6 g/dL (5.8-8.1); Sodium 137 mmol/L (136-145)
[2022-09-19] MEDS: Famotidine/PF 20 mg/2ml Vial SLOW IVP SCH (08:15)
[2022-09-19 08:16] VITALS: TEMP 97.9
[2022-09-19 10:22] LABS: Hemoglobin 15.7 g/dL (14.0-18.0)
[2022-09-19 13:07] VITALS: BP 161/89
== END 2022-09-19 12:30 | disposition home or self-care (01) | DRG 89 ==
LOC: ERS 14:03 → ERHOLD 16:29 → IMCU/EMU 17:11
PROVIDERS: ADMIT Surgery; ATTEND Surgery
DX: S06.0XAA Concussion with loss of consciousness status unknown, initial encounter (principal); S36.892A Contusion of other intra-abdominal organs, initial encounter; S00.83XA Contusion of other part of head, initial encounter; R40.2362 Coma scale, best motor response, obeys commands, at arrival to emergency department; R40.2142 Coma scale, eyes open, spontaneous, at arrival to emergency department; R40.2252 Coma scale, best verbal response, oriented, at arrival to emergency department; S70.02XA Contusion of left hip, initial encounter; Z88.8 Allergy status to other drugs, medicaments and biological substances; V13.4XXA Pedal cycle driver injured in collision with car, pick-up truck or van in traffic accident, initial encounter
CPT/HCPCS: 36415; 70450; 71045; 72125; 74177; 80053; 81003; 81015; 82550; 83690; 85025; 85610; 85730; 86850; 86900; 86901; 96365; 96376; G0390; J0360; J3490; J7050; Q9967; S0028